=== PATIENT | female | born 1940 | race Caucasian/White ===

== ENCOUNTER 2017-03-05 21:01 | Inpatient (IN) | payer MEDICARE, BC ==
[~2017-03-05] VITALS: Ht 152.4 cm; Wt 59.1 kg
[~2017-03-05 21:01] MED LIST: ALBUTEROL INH; ALBUTEROL SULFAT4 MG; ALBUTEROL SULFAT4 MG PO; ALDACTONE100 MG PO; ALLOPURINOL 10100 M1 PO; ATROVENT; AVELOX 400 MG400 MG PO; AYR SALINE NASA14 GM TOP; BACTRIM DS TAB1 EACH PO; BENADRYL25 MG; BENADRYL25 MG PO; CELEXA20 MG PO; CENTRUM SILVER1 EAC1; CENTRUM SILVER1 EAC4 PO; CIPROFLOXACIN500 M3 PO; CLEOCIN HCL300 MG PO; CLONAZEPAM 1 MG1 M1 PO; COLACE100 MG PO; COMBIVENT; COMBIVENT INH; DEEP SEA NASAL44 M1 NASAL; DIFLUCAN200 MG PO; DUONEB 2.5-0.5 M3 ML INH; ENOXAPARIN40 MG/0.1 SUBQ; FISH OIL 1,0001 EAC6; FISH OIL 1,2001 EAC4 PO; FLEXERIL PO; FLOVENT HFA 2220 MC1; FLOVENT HFA 2220 MCG INH; FOLIC ACID1 MG PO; GLIPIZIDE 5 MG PO; HYOSCYAMINE0.125 M1 PO; INVANZ 1GM/NS 101 GM IV; IRON325 PO; KLONOPIN; KLOR-CON 1010 MEQ PO; LASIX 80 MG TAB80 MG PO; LEVAQUIN 250 M250 MG PO; LEVAQUIN 500 M500 M1 PO; LEVEMIR SUBQ; LIDODERM 5%1 PATCH TOP; LIPITOR 20 MG T20 M1 PO; LOPRESSOR 12.12.5 MG PO; LOPRESSOR25; MACRODANTIN50 MG PO; MEROPENEM500 MG INJECTION; MIRALAX255 GM PO; MUCINEX TA600 MG/TA2 PO; MUCINEX600 MG; NORCO 7.5-3251 EACH PO; NOVOLOG100 UNIT/1 SUBQ; OXYCODONE HCL30 MG; OXYCODONE HCL5 M1 PO; PREDNISONE 10 M10 M1; PREDNISONE 20 M20 MG; PRILOSEC 20 MG20 MG PO; PROCRIT 1010000 U/M1 SUBQ; PROTONIX40 M1 PO; PULMICORT0.5 MG/2 M; RESTORIL15 MG; RESTORIL15 MG PO; SIMVASTATIN40 MG PO; SINGULAIR 10 MG10 M1 PO; SLOW-MAG64 MG PO; STOOL SOFTENER50 MG; SYMBICORT160 MCG/4.; TAMSULOSIN HCL0.4 MG PO; TRAMADOL 50 MG50 MG PO; TYLENOL325 MG PO; VITAMIN B-12500 MCG PO; VITAMIN D1000 UNI1; VITAMIN D1000 UNI1 PO; VITAMIN D3400 UNIT PO; XOPENEX0.63 MG/3 INH; ZOLOFT100 MG; [UNRECOGNIZED DRUG - OTHER] PO
[2017-03-05 21:02] VITALS: BP 149/80
[2017-03-05 21:32] LABS: ABSOLUTE BASOPHILS 0.1 thou/uL (0.0-0.2); ABSOLUTE EOSINOPHILS 0.5 thou/uL (0.0-0.7); ABSOLUTE LYMPHOCYTES 2.7 thou/uL (0.8-5.3); ABSOLUTE MONOCYTES 1.1 thou/uL (0.0-1.2); ABSOLUTE NEUTROPHILS 6.5 thou/uL (1.6-8.1); BASOPHILS 0.5 %; EOSINOPHILS 4.2 %; HEMATOCRIT 33.2 % (37.0-47.0); HEMOGLOBIN 10.5 gm/dL (12.0-15.0); MCH 31.1 pg (26.0-34.0); MCHC 31.6 g/dL (28.0-37.0); MCV 98.4 fL (80.0-100.0); MONOCYTES 10.2 %; MPV 8.1 fl. (7.2-11.1); NUCLEATED RBCS 0 /100WBC; PLATELET COUNT* 276 thou/uL (150-400); POLYS 60.1 %; RBC 3.37 mil/uL (4.20-5.00); RDW-CV 14.9 % (10.5-14.5); WBC 10.8 thou/uL (4.0-11.0)
[2017-03-05 21:39] LABS: ANION GAP 8 mmol/L (7-16); BUN 28 mg/dL (7-18); CALCIUM 9.8 mg/dL (8.5-10.1); CHLORIDE 101 mmol/L (98-107); CO2 30 mmol/L (21-32); CREATININE 1.8 mg/dL (0.6-1.3); GLUCOSE 138 mg/dL (70-99); POTASSIUM 4.1 mmol/L (3.5-5.1); PROTIME 10.2 Seconds (9.20-11.50); SODIUM 139 mmol/L (136-145)
[2017-03-05] MEDS ORDERED: FLOVENT (21:45)
[2017-03-05] MEDS ORDERED: FOLIC ACID (21:47)
[2017-03-05] MEDS ORDERED: MUCINEX600 MG (21:47)
[2017-03-05 21:49] LABS: ALBUMIN 3.3 g/dL (3.4-5.0); ALKALINE PHOSPHATASE 87 U/L (46-116); NT-PRO BRAIN NAT PEPTIDE 575 pg/mL (<300); SGOT 32 U/L (15-37); SGPT 31 U/L (30-65); TOTAL BILIRUBIN 0.3 mg/dL (<0.1-1.0); TOTAL PROTEIN 8.2 g/dL (6.4-8.2); TROPONIN-I LEVEL <0.06 ng/mL (<0.06)
[2017-03-05] MEDS ORDERED: OXYCODONE HCL 55 MG PO (21:49)
[2017-03-05] MEDS ORDERED: SLOW-MAG64 M1 (21:50)
[2017-03-05] MEDS ORDERED: PRILOSEC 20 MG20 MG (21:50)
[2017-03-05] MEDS ORDERED: STOOL SOFTENER1 EAC3 (21:51)
[2017-03-05 22:07] LABS: URINE BILIRUBIN NEGATIVE (Negative); URINE BLOOD TRACE (Negative); URINE CLARITY CLEAR; URINE COLOR STRAW; URINE GLUCOSE-RANDOM NEGATIVE (Negative); URINE KETONES NEGATIVE (Negative); URINE LEUKOCYTES-REFLEX 1+ (Negative); URINE NITRITE-REFLEX NEGATIVE (Negative); URINE PROTEIN NEGATIVE (Negative); URINE UROBILINOGEN 0.2 E.U./dl (0.2-1.0)
[2017-03-05 22:13] LABS: SQUAMOUS 0-3 Few /LPF (0-3); URINE RBC 3-10 Few /HPF (0-2); WBC CLUMPS Few (None Seen)
[2017-03-05 22:14] LABS: BACTERIA-REFLEX 1-9 Few /HPF (None Seen); CASTS None Seen /LPF (None Seen); MUCUS None Seen strn/LPF (None Seen)
[2017-03-05 22:15] LABS: AMORPHOUS PHOSPHATES Few /LPF (None Seen)
[2017-03-05 22:31] LABS: BE -3.8 mmol/L (-2 to +3); HCO3 24.8 mmol/L (22.0-26.0)
[2017-03-05 22:32] LABS: pH 7.218 (7.340-7.450)
[2017-03-05 22:33] LABS: PCO2 62.2 mmHg (35.0-45.0); PO2 128.2 mmHg (75.0-100.0)
[2017-03-06] VITALS (14 sets, daily range): BP systolic 99–122; BP diastolic 35–47
--- NOTE | 2017-03-06 03:25 | NUR ---
PT ADMITTED TO ROOM 8 AT 0200. PT ADMITTED FOR SPONTANEOUS PNEMOTHORAX, RESPIRATORY THERAPY. PT ACCOMPANIED BY DAUGHTER. PT HAS CHEST TUBE PLACED TO LEFT LATERAL CHEST. PT ON 100% NON REBREATHER, RESPIRATIONS EVEN AND NON LABORED. PT'S HEART RATE, BLOOD PRESSURE AND RESPIRATIONS WITHIN NORMAL LIMITS. PT GIVEN PRN MORPHINE FOR PAIN. CALL LIGHT IN REACH, PT USING APPROPRIATELY.
[2017-03-06 04:47] LABS: BE 1.3 mmol/L (-2 to +3); HCO3 29.4 mmol/L (22.0-26.0)
[2017-03-06 04:50] LABS: PCO2 68.1 mmHg (35.0-45.0); pH 7.253 (7.340-7.450)
[2017-03-06 04:51] LABS: PO2 201.1 mmHg (75.0-100.0)
[2017-03-06 05:17] LABS: HEMATOCRIT 26.9 % (37.0-47.0); HEMOGLOBIN 8.6 gm/dL (12.0-15.0); MCH 31.3 pg (26.0-34.0); MCHC 31.8 g/dL (28.0-37.0); MCV 98.3 fL (80.0-100.0); NUCLEATED RBCS 0 /100WBC; PLATELET COUNT* 230 thou/uL (150-400); RBC 2.74 mil/uL (4.20-5.00); WBC 6.7 thou/uL (4.0-11.0)
[2017-03-06 05:54] LABS: ALBUMIN 2.8 g/dL (3.4-5.0); CALCIUM 8.7 mg/dL (8.5-10.1); CREATININE 1.9 mg/dL (0.6-1.3); POTASSIUM 4.5 mmol/L (3.5-5.1); TOTAL BILIRUBIN 0.2 mg/dL (<0.1-1.0); TOTAL PROTEIN 6.5 g/dL (6.4-8.2)
--- NOTE | 2017-03-06 06:30 | NUR ---
SPOKE WITH DR ENRIQUEZ FOR PULMONARY CONSULT. RECIEVED ORDERS TO INITIATE BIPAP.
[2017-03-06 06:36] LABS: ABSOLUTE LYMPHOCYTES 0.5 thou/uL (0.8-5.3); ABSOLUTE NEUTROPHILS 6.2 thou/uL (1.6-8.1)
[2017-03-06 06:37] LABS: PLATELET ESTIMATE ADEQUATE
[2017-03-06 09:16] LABS: BE -1.5 mmol/L (-2 to +3); HCO3 26.4 mmol/L (22.0-26.0); PO2 73.8 mmHg (75.0-100.0)
[2017-03-06 09:23] LABS: PCO2 62.1 mmHg (35.0-45.0); pH 7.247 (7.340-7.450)
--- NOTE | 2017-03-06 09:36 | EKG ---
[place] [address] ELECTROCARDIOGRAM REPORT Name: MARNI QUIGLEY Room: [address] ADM IN .R.#: [id number] Admission: 03/06/17 Attend Phys: Baldev Chun MD Discharge: Date of : 44 Report #: [id number] THIS REPORT FOR: //name// [facility] ED Test Date: 2017-03-05 Test Time: 22:06:25 Pat Name: MARNI QUIGLEY Department: Room: [facility] Gender: F Foreign Policy Officer: AP : 1940 Requested By: Kiki Gaspar Order Number: [id number] MD: Shane Huizar Measurements Intervals Hartley Rate: 99 P: 81 GA: 157 QRS: 37 QRSD: 60 T: QT: 395 QTc: 507 Interpretive Statements Sinus rhythm Borderline repolarization abnormality Prolonged QT interval Compared to ECG 08/09/2014 17:53:17 Prolonged QT interval now present Electronically Signed On 03-06-2017 9:36:28 PRACTICE ADMINISTRATOR by Shane Huizar [email or web address] <ELECTRONICALLY SIGNED> By: Shane Huizar MD, [facility] 1136 05 05 Shane Huizar MD, [facility] /EPI
--- NOTE | 2017-03-06 09:40 | NUR ---
ASSUMED CARE OF PT AROUND 0800 THIS AM. REFER TO ASSESSMENT. PT VOICES NO CONCERNS THIS AM. CHEST TUBE NOTED AT -20 PRESSURE. INTERMITTENT BUBBLING NOTED WITH RESPIRATIONS. PT CONTINUES ON BIPAP AT 12/6. PT TOLERATING WELL. REMOVED BIPAP TO ADMINISTER MEDICATION AND PLACED PT ON 7L O2/NC. SATS NOTED TO DROP IN THE 70'S. ABG'S REDRAWN AT 0900 AND RESULTS REPORTED TO DR. PENA. NO OTHER CONCERNS AT THIS TIME. CLWR. WCTM.
--- NOTE | 2017-03-06 13:40 | NUR ---
ORDER TO PLACE PATEL FOR IMMOBILIZATION AND I&O MONITORING. MULTIPLE ATTEMPTS TO PLACE PATEL WITHOUT SUCCESS. PT ATTEMPTED TO VOID ON OWN WITHOUT SUCCESS USING BEDPAN. UROLOGY CONSULTED. CYSTOSCOPE REQUIRED PER UROLOGISTS AND UNAVAILABLE AT THIS TIME. WCTM.
--- NOTE | 2017-03-06 14:06 | NUR ---
CHART REVIEWED. SPOKE WITH PATIENT. PATIENT LIVES WITH DAUGHTER REMBERTO. DAUGHTER DOES ALL CHOUSEHOLD CHORES, CLEANING, AND DRIVING. PRIOR TO ADMISSION PATIENT INDEPENDENT WITH BATHING AND DRESSING. PATIENT USES HOME 02 AND A BIPAP SERVICED BY [facility]. INFORMED OF THE ROLE OF CM. CM WILL CONTINUE TO FOLLOW.
--- NOTE | 2017-03-06 16:32 | NUR ---
PT TRANSFERRED TO ICU ROOM 3 AROUND 1615. REPORT GIVEN FROM PREVIOUS NURSE. VSS AT TIME OF TRANSFER. REFER TO ASSESSMENT. ALL BELONGINGS TRANSFERRED WITH PT. NO OTHER CONCERNS AT THIS TIME. CLWR. WCTM.
--- NOTE | 2017-03-06 17:22 | NUR ---
PT TOLERATING BREAK FROM BIPAP AT THIS TIME. PLACED ON 6L O2/NC AND SATS REMAINING 97%. PT TOLERATING CLEAR LIQUID DIET. DAUGHTER AT BEDSIDE AT THIS TIME. NO BUBBLES NOTED IN CHEST TUBE. NO SIGNS OF LEAK AT THIS TIME. NO OTHER CONCERNS. VSS. CLWR. WCTM.
[2017-03-07] VITALS (7 sets, daily range): BP systolic 101–140; BP diastolic 38–53
[2017-03-07 04:02] LABS: HEMATOCRIT 23.6 % (37.0-47.0); HEMOGLOBIN 7.6 gm/dL (12.0-15.0); MCH 31.3 pg (26.0-34.0); MCHC 32.1 g/dL (28.0-37.0); MCV 97.4 fL (80.0-100.0); MPV 7.9 fl. (7.2-11.1); RBC 2.43 mil/uL (4.20-5.00); RDW-CV 14.8 % (10.5-14.5); WBC 5.6 thou/uL (4.0-11.0)
[2017-03-07 04:11] LABS: CREATININE 1.7 mg/dL (0.6-1.3); MAGNESIUM 1.8 mg/dL (1.8-2.4); POTASSIUM 4.4 mmol/L (3.5-5.1)
--- NOTE | 2017-03-07 07:07 | NUR ---
PATIENT IS PROGRESSING TOWARDS GOALS. PT CHEST TUBE IS IN PLACE, ON 5L NC, COLOR DRAINAGE STAYED THE SAME SANGUINEOUS. RR, WORK OF BREATHING, 02 ALL WNL. PT WAS NOT ABLE TO SLEEP D/T CONTINOUS PAIN IN CHEST TUBE AREA. PT CURRENTLY STABLE, CALL LIGHT WITHIN REACH. PT HAS NO CONCERNS AT THIS TIME.
[2017-03-07 08:41] LABS: BE -0.8 mmol/L (-2 to +3); HCO3 26.2 mmol/L (22.0-26.0); PO2 64.8 mmHg (75.0-100.0); pH 7.281 (7.340-7.450)
--- NOTE | 2017-03-07 09:37 | NUR ---
RECEIVED REPORT FROM NIGHT RN. ASSESSMENT CHARTED. AFEBRILE. TELE STATUS. STILL ON NC. CHEST TUBE STILL IN PLACE. WILL CONTINUE TO MONITOR.
--- NOTE | 2017-03-07 11:01 | CON ---
[address] [address] CONSULTATION Name: MARNI QUIGLEY Room: [address] IN .R.#: [id number] Admission: 03/06/17 Attend Phys: Baldev Chun MD Discharge: Date of : 44 Report #: [id number] THIS REPORT FOR: //name// CC: Baldev Staley REASON FOR CONSULTATION: Pneumothorax and chronic obstructive pulmonary disease with acute respiratory failure. HISTORY OF PRESENT ILLNESS: The patient is a 76-year-old female patient with history of COPD, prior history of smoking. Her last FEV1 was less than 50% predicted according to the records from our office. She is on 4-5 liters oxygen. She has history of sleep apnea, unable to tolerate CPAP. Her last hospitalization to this facility with acute respiratory failure was in July of this year. She presented to the emergency room with a chief complaint of sudden onset of shortness of breath, dyspnea and in the emergency room she was found to have left-sided pneumothorax. On first attempt of the chest tube, the chest tube did not go all the way in and she had to have another chest tube placed. $since then, there is improvement in the pneumothorax, although there is still some eminence of apical pneumothorax. The patient reported that she had been having baseline shortness of breath, although that changed over 24 hours prior to hospitalization. Also, she reports she has cough productive, although she could not tell me the color of the sputum. She thought she might have some fever, but no chills. When I saw her, she was on BiPAP. She had multiple ABGs for her Continuing to have hypercapnic respiratory failure, although she was tolerating her BiPAP well, putting around 500 tidal volume. Overall, looking comfortable, but she still feels some pain on the side of the chest tube and feeling short of breath. ____ was taken off the BiPAP to 7 liter oxygen, she dropped her O2 saturation to 70s. PAST MEDICAL HISTORY: Chronic respiratory failure on home oxygen, COPD, possible interstitial lung disease, chronic renal failure, obstructive sleep apnea, not tolerating CPAP, gastroesophageal reflux disease. SOCIAL HISTORY: Smoked for a long time, but she quit. Does not drink alcohol. Does not abuse drugs. ALLERGIES: IODINE, CEPHALOSPORINS, PENICILLIN AND LEVOFLOXACIN. HOME MEDICATIONS: She is on oxygen, DuoNeb, Combivent, Flovent, ____, Mucinex, fish oil, metoprolol, Lasix, oxycodone, simvastatin, temazepam, folic acid. REVIEW OF SYSTEMS: Twelve systems reviewed with the patient, negative other than [place] [address] CONSULTATION Name: MARNI QUIGLEY Room: [address] IN M.R.#: [id number] Admission: 03/06/17 Attend Phys: Baldev Chun MD Discharge: Date of : 44 Report #: [id number] PHYSICAL EXAMINATION: GENERAL: She is on BiPAP, overall looking comfortable. Awake, alert and answering questions appropriately. HEAD: Normocephalic, atraumatic. EYES: Pupils equal, reactive to light. ORAL CAVITY: Not examined. I did not take the BiPAP mask off. NECK: Supple. No palpable lymph node. No palpable thyroid. Trachea central. No increased jugular venous pressure. CHEST: Diminished air movement bilaterally, mostly on the left side; some tenderness where the chest tube is placed; prolonged expiratory phase; some occasional wheezes. HEART: S1, S2. No murmur, no gallop. ABDOMEN: Benign, soft, lax, nontender, positive bowel sounds. No masses felt. LOWER EXTREMITIES: No edema appreciated. No calf tenderness. MUSCULOSKELETAL: No deformities. No contracture. No joint abnormalities. NEUROLOGIC: She seems to be awake, alert and oriented. Moving 4 extremities spontaneously. PSYCHIATRIC: Mood and affect appropriate, slightly anxious. LYMPHATICS: No palpable lymph node. LABORATORY DATA: She had multiple chest x-rays during hospitalization. Initial chest x-ray showed significant left-sided pneumothorax, moderate in size and a followup chest x-ray showed apical pneumothorax. The last chest x-ray this morning showed improvement in the basal pneumothorax, but some apical pneumothorax. Her white blood count is 10.8, hemoglobin 10.5 and platelets of 276. ABGs: She had multiple ABGs during this stay. The last ABG, pH of 7.24/62/73, although when I saw her, she was putting really good volume at 500. INR of 1. Creatinine of 1.9. Potassium 4.5. BNP was elevated. IMPRESSION: 1. Dsujm-su-kmkzktn hypoxic respiratory failure. At baseline, she is on 5 liters oxygen. 2. Obstructive sleep apnea, tolerating continuous positive airway pressure. 3. Hypoxic and hypercapnic respiratory failure. 4. Left-sided pneumothorax spontaneous, status post chest tube placement. 5. Chronic obstructive pulmonary disease exacerbation. PLAN: At this point, I will keep the chest tube to ____ water suction. We will do a stat chest x-ray now for followup and we will do daily chest x-rays. I did see some minimal leak on the chest tube during my evaluation. She will be on steroids, I will start her on antibiotics and she will be scheduled nebulization treatment. It was noted the patient is DNR. [facility] [address] [place] [address] CONSULTATION Name: MARNI QUIGLEY Room: [address] ADM IN M.R.#: [id number] Admission: 03/06/17 Attend Phys: Baldev Chun MD Discharge: Date of : 44 Report #: [id number] Thank you for the consult. Discussed with RN. We will follow along with you. <ELECTRONICALLY SIGNED> By: Raza Pardo MD 03/07/17 1101 1034 Chloé Gonsales MD /nt
--- NOTE | 2017-03-07 14:46 | NUR ---
PT TRANSFERRED TO TELE UNIT WITH BELONGINGS AND NURSE TECH. REPORT GIVEN TO SHANE OCHOA AT 1430.
--- NOTE | 2017-03-07 15:12 | NUR ---
PT TRANSFERRED VIA BED WITH RN AT 1500 WITH BELONGINGS. REPORT GIVEN TO GABRIELA ELKINS.
--- NOTE | 2017-03-07 15:51 | NUR ---
PATIENT TRANSFERED TO ROOM 213. SERVICENOW ADMINISTRATOR READING SR. 5 L O2. RIGHT ARM IV SALINE LOCKED. RIGHT FOREARM IV SALINE LOCKED. PATIENT IS ALERT AND ORIENTED X 4. CALL LIGHT IS IN REACH. BED IN LOW AND LOCKED POSTION. PATIENT HAS NO QUESTIONS OR CONCERNS AT THIS TIME. WILL CONTINUE TO MONITOR THIS SHIFT.
--- NOTE | 2017-03-07 18:16 | NUR ---
I have reviewed the documentation by KERRY from 699 to 1815 and I concur with it.
--- NOTE | 2017-03-07 23:41 | NUR ---
ALERT AND ORIENTED X 4. CHEST TUBE IN PLACE. O2 SATS IN 90S ON 2 LITERS NC. COLOSTOMY WITH GREEN LIQIUD DRAINAGE. APPROXIMALETY 200 CC THUS FAR. EMPTIED TWICE. CONT. TO MONITOR. BOWEL SOUNDS ACTIVE. CONT. FULL LIQIUD DIET. DENIES ANY COMPLAINTS. NO SIGN OF DISTRESS. WILL PROCEED WITH CURRENT PLAN OF CARE AT THIS TIME.
[2017-03-08] VITALS: BP 116/45
[2017-03-08 04:00] VITALS: BP 100/45
[2017-03-08 04:51] LABS: BE 0.3 mmol/L (-2 to +3); HCO3 25.8 mmol/L (22.0-26.0); PCO2 46.4 mmHg (35.0-45.0); PO2 70.4 mmHg (75.0-100.0); pH 7.363 (7.340-7.450)
[2017-03-08 05:10] LABS: HEMATOCRIT 22.5 % (37.0-47.0); HEMOGLOBIN 7.3 gm/dL (12.0-15.0); MCH 31.4 pg (26.0-34.0); MCHC 32.6 g/dL (28.0-37.0); MCV 96.1 fL (80.0-100.0); MPV 7.9 fl. (7.2-11.1); RBC 2.34 mil/uL (4.20-5.00); RDW-CV 14.9 % (10.5-14.5)
[2017-03-08 05:25] LABS: CREATININE 1.3 mg/dL (0.6-1.3); MAGNESIUM 1.9 mg/dL (1.8-2.4); POTASSIUM 4.2 mmol/L (3.5-5.1)
--- NOTE | 2017-03-08 06:19 | NUR ---
PATIENT WITH 5 CC OF OUTPUT FROM CHEST TUBE. 20CC OUTPUT AT BEGINNING OF SHIFT.
[2017-03-08 09:45] VITALS: BP 120/50
--- NOTE | 2017-03-08 10:35 | NUR ---
VANCOMYCIN ORDERED FOR THE TREATMENT OF AEROCOCCUS UTI PER DR SNOW. PATIENT HAS NO HISTORY OF RENAL DYSFUNCTION AND CURRENT LABS INCLUDE WBC=8.0, CR=1.3, CRCL (ACTUAL BW)=35.4. PER PHARMACY PROTOCOL, PATIENT WILL RECEIVE A 1.25G VANCOMYCIN BOLUS, FOLLOWED BY 0.5G Q12H THEREAFTER. A TROUGH IS SCHEDULED FOR 03/10 AT 1030 AND PHARMACY WILL FOLLOW.
--- NOTE | 2017-03-08 15:51 | NUR ---
ASSESSMENT COMPLETED. REFER TO COMPUTER CHARTING. SUPERVISOR PUMPING STATION TRACING SR. PATIENT IS ALERT AND ORIENTED X 4. 5 L NC. BIPAP HS. PATEL IS PATENT. COLOSTOMY IS INTACT. IV RIGHT FOREARM SALINE LOCKED. PATIENT C/O PAIN AT CHEST TUBE INSERTION SITE. CALL LIGHT IN REACH. BED IN LOW AND LOCKED POSTION.
--- NOTE | 2017-03-08 15:51 | NUR ---
ASSUMED CARE OF PATIENT. AGREE WITH PREVIOUS NURSES CHARTING. VSS ON 5L O2. PATIENT HAS BEEN ORIENTED TO ROOM. CALL LIGHT IS WITHIN REACH. NURSING WILL CONTINUE TO MONITOR.
--- NOTE | 2017-03-08 15:56 | NUR ---
I have reviewed the documentation by KERRY from 0700 to 1556 and I concur with it.
[2017-03-08 16:00] VITALS: BP 103/31
--- NOTE | 2017-03-08 18:09 | NUR ---
ALERT AND ORIENTED X4. PAIN BEING MANAGED WITH PO PAIN MEDICATION. DENIES NAUSEA. IV IS PATENT AND SALINE LOCKED. CHEST TUBE IN PLACE. BIPAP AT BEDSIDE FOR GENETIC COUNSELOR. VSS ON ROOM AIR HOURLY ROUNDS HAVE BEEN MAINTAINED THROUGHOUT SHIFT. CALL LIGHT IS WITHIN REACH. NURSING WILL CONTINUE TO MONITOR.
[2017-03-09] VITALS (7 sets, daily range): BP systolic 108–126; BP diastolic 41–54
--- NOTE | 2017-03-09 06:01 | NUR ---
ALERT AND ORIENTED. CHEST TUBE REMAINS IN PLACE AND O2 SATS REMAIN IN 90'S WITH O2 AT 5L/NC. DRESSING REMAINS DRY AND INTACT OVER CHEST TUBE SITE. ON BIPAP DURING NIGHT. ABLE TO SLEEP FOR SEVERAL HOURS DURING THE NIGHT. USING IV AND PO PAIN MEDICATION TO HELP WITH CHEST TUBE SITE PAIN. CONTINUES ON IV ANTIBIODICS. PATEL CATH PATENT WITH CLEAR YELLOW URINE. CALL LIGHT WITHIN REACH.
--- NOTE | 2017-03-09 17:52 | NUR ---
PATIENT IS ALERT AND ORIENTED TODAY VERY PLEASANT. HAS HAD SOME PAIN THAT IS CONTROLLED WITH ORAL PAIN MEDICATIONS, PAIN IS FROM CHEST TUBE. VITAL SIGNS STABLE ON 5 LITERS OF OXYGEN. PATEL IS IN PLACE AND DRAINING WELL. CHEST TUBE IS IN PLACE AND WORKING, PATIENT HAS NOT COMPLAINED OF SHORTNESS OF AIR TODADY. CALL LIGHT IN REACH, WILL CONTINUE TO MONITOR.
[2017-03-10 03:40] VITALS: BP 116/52
--- NOTE | 2017-03-10 04:18 | NUR ---
PATIENT ALERT AND ORIENTED. SMALL AMOUNT OF BUBBLING NOTED IN CHEST TUBE CANNISTER AT BEGINNING OF SHIFT. AT APROXIMATELY 2320 FLUID IN CHEST TUBE CANNISTER HAD ALOT OF BUBBLING NOTED. PATIENT HAD NO C/O SOA, LUNG SOUNDS REMAIN DIMMINISHED. NO INCREASE IN PAIN NOTED. O 2 SAT REMAINS AT 95% WITH O2 AT 5L/NC. RESPIRATIONS REMAIN EVEN AND NONLABORED. DRESSING CHANGED OVER CHEST TUBE SITE. BUBBLING STOPPED FOR A WHILE AFTER CHANGING CHEST TUBE SITE DRESSING. ACID PURIFICATION EQUIPMENT OPERATOR AND DR NOTIFIED. NEW ORDER FOR CHEST XRAY ORDERED. BUBBLING STARTED BACK UP AGAIN IN CANNISTER. TUBING WAS SEALED TIGHTER AND BUBBLING STOPPED AGAIN. BUBBLING SEEMS TO BE POSITIONAL WITH CHANGE IN PATIENT POSITION AT TIMES. THERE ALSO WAS AN INCREASE IN SEROSANGUINEOUS DRAINAGE. ICU NURSE ALSO HERE TO CHECK TUBING AND PATIENT. NOTIFIED OF CHEST XRAY RESULTS, AND CHANGES WITH BUBBLING AND DRAINAGE. CHEST TUBE CANNISTER CURRENTLY IS NOT BUBBLING. USING IV AND PO PAIN MEDICATION TO HELP WITH PAIN. PATEL PATENT WITH CLEAR YELLOW URINE. WILL CONTINUE TO MONITOR . CALL LIGHT WITHIN REACH.
--- NOTE | 2017-03-10 07:07 | NUR ---
DR BALLARD SAID TO CALL PULMONARY IN AM REGARDING PATIENT'S CHEST TUBE. MESSAGE LEFT WITH PULMONARY ANSWERING SERVICE GEOFF AT 0700.
[2017-03-10 11:14] VITALS: BP 122/50
--- NOTE | 2017-03-10 13:46 | NUR ---
RE: PHARMACY VANCOMYCIN DOSING. SCR = 1.3, CRCL = 27.3, TMAX = 36.6C, WBC = 8.0. PT RECEIVING VANCOMYCIN 500 MG IV Q12H. PT HAD VANCOMYCIN TROUGH RESULT OF 16 WHICH WAS DRAWN APPROPRIATELY. WILL CONTINUE SAME DOSE. WILL FOLLOW. THANK YOU.
[2017-03-10 15:39] VITALS: BP 126/77
--- NOTE | 2017-03-10 17:44 | NUR ---
PATIENT IS ALERT AND ORIENTED TODAY VERY PLEASANT TODAY. FAMILY AT BEDSIDE TODAY. HAS COMPLAINED OF PAIN WITH ANY MOVEMENT FROM THE CHEST TUBE. SURGERY FIXED AIR LEAK IN TUBE AND HAS BEEN WORKING WELL SINCE THEN, DRAINING WELL. PATEL IN PLACE WORKS WELL. PATIENT HAD AN EPISODE OF SHORTNESS OF AIR TODAY AND REQUESTED A BREATHING TREATMENT WHICH SEEMED TO HELP. COUGH HAS BECOME PRODUCTIVE AT TIMES. VITAL SIGNS STABLE ON 4 LITERS OF OXYGEN THROUGH NASAL CANNULA. CALL LIGHT IN REACH, WILL CONTINUE TO MONITOR.
[2017-03-10 22:15] VITALS: BP 133/59
[2017-03-11 00:21] VITALS: BP 133/54
[2017-03-11 04:04] LABS: HEMATOCRIT 27.6 % (37.0-47.0); HEMOGLOBIN 8.8 gm/dL (12.0-15.0); MCH 31.2 pg (26.0-34.0); MCV 97.5 fL (80.0-100.0); MPV 8.3 fl. (7.2-11.1); RBC 2.83 mil/uL (4.20-5.00); RDW-CV 15.1 % (10.5-14.5); WBC 10.3 thou/uL (4.0-11.0)
[2017-03-11 04:19] LABS: CALCIUM 8.6 mg/dL (8.5-10.1); CREATININE 1.4 mg/dL (0.6-1.3); MAGNESIUM 1.4 mg/dL (1.8-2.4); POTASSIUM 5.3 mmol/L (3.5-5.1)
[2017-03-11 04:43] VITALS: BP 124/62
--- NOTE | 2017-03-11 07:30 | NUR ---
ALERT AND ORIENTED. PATIENT TOOK PO PAIN MEDICATION X2 LAST NIGHT AND WAS ABLE TO REST QUIETLY IN BED. CHEST TUBE DRESSING REMAINS DRY AND INTACT WITH NO DRAINAGE OR BUBBLING NOTED IN CANNISTER. NO INCREASE IN SOA. LUNG SOUNDS REMAIN DIMISHED. REMAINS ON 4L/NC OF O2. CALL LIGHT WITHIN REACH. BED ALARM ON.
[2017-03-11 16:00] VITALS: BP 142/62
--- NOTE | 2017-03-11 18:08 | NUR ---
ALERT AND ORIENTED X4. PAIN BEING MANAGED WITH PO PAIN MEDICATION. DENIES NAUSEA. IV STARTED LEAKING IN LEFT FOREARM AND REINSERTED IN THE LEFT HAND, NOW SALINE LOCKED. CHEST TUBE IS IN PLACE. THIS AM THERE WAS SOME BUBBLING IN THE AIR LEAK CHAMBER PROVIDER NOTIFIED AND LEAK RESOLVED WITH POSITION CHANGES. VSS ON 4L O2. HOURLY ROUNDS HAVE BEEN MAINTAINED THROUGHOUT SHIFT. CALL LIGHT IS WITHIN REACH. NURSING WILL CONTINUE TO MONITOR.
[2017-03-11 20:00] VITALS: BP 143/59
[2017-03-12 00:35] VITALS: BP 133/54
--- NOTE | 2017-03-12 05:39 | NUR ---
ASSUMED CARE OF PATIENT AT APPROXIMATELY 1999. DURING INITIAL ASSESSMENT, PATIENT HAD NO C/O PAIN D/T CT. CT FUNCTIONED WELL DURING ENTIRE OVERNIGHT SHIFT, WITH NO BUBBLING. PARAMJITIENT CONTINUES TO BE ON 4L O2 AND IS SATTING WNL. PATEL CATHETER IN PLACE AT THIS TIME WITH YELLOW, CLEAR URINE OUTPUT. PATIENT DOES ALL COLOSTOMY CARE BY SELF AND WITH LITTLE SUPPORT FROM NURSING STAFF. 10MG OXYCODONE GIVEN FOR CHEST PAIN PRIOR TO BED, BUT NO OTHER COMPLAINTS OF ANY KIND DURING THE REMAINDER OF THE SHIFT. NURSING TO FOLLOW-UP NECESSARY. FALL PRECAUTIONS IN PLACE, INCLUDING CALL LIGHT WITHIN REACH. WILL CONTINUE TO MONITOR CLOSELY.
[2017-03-12 08:00] VITALS: BP 129/55
--- NOTE | 2017-03-12 16:18 | NUR ---
CONSULTED FOR VASCULAR ACCESS FOR PT WHO HAS HAD MULTIPLE IV SITES THIS STAY AND IS GETTING VANC BID. AFTER EVALUATION AND DISCUSSION WITH PRIMARY RN AN PT MIDLINE WAS CHOSEN. PER PT REQUEST ATTEMPT TO PLACE MIDLINE IN LEFT BASILIC UNSUCESSFUL. RIGHT BASILIC EVALUATED WITH ULTRASOUND AND MARKED. POWER MIDLINE TRIMMED TO 9CM PLACED RIGHT UPPER ARM BASILIC PER HOSPITAL POLICY. PRIMARY RN NOTIFIED AND LINE RELEASED FOR USE.
--- NOTE | 2017-03-12 17:58 | NUR ---
NO BUBBLING OR TIDALING NOTED IN CHEST TUBE CHAMBER. CHEST UBE REMAINS TO SUCTION. PT DENIES SOA, RESPIRATIONS EVEN AND SLIGHTLY LABORED AT REST. LUNGS CLEAR THROUGHOUT. OCCASIONAL PRODUCTIVE COUGH. O2 SAT UPPER 90S 4L O2 NC. NO C/O. IV INFILTRATED AND MIDLINE INSERTED R UPPER ARM. PT ABLE TO MAKE NEEDS KNOWN, CALL LIGHT IN REACH
[2017-03-12 20:00] VITALS: BP 153/71
[2017-03-13 00:08] VITALS: BP 127/53
--- NOTE | 2017-03-13 04:38 | NUR ---
ASSUMED CARE OF PT AT 1900 PT ALERT AND ORIENTED X4 VS AND ASSESSMENT STABLE. CHEST TUBE TO THE L LATERAL THORACIC AREA REMAINS INTACT AND TO -20 CONTINUOUS SUCTION DRSG CDI. NO NOTE CREPETIS SURROUNDING THE CHEST TUBE INSERTION SITE OR CLAVICAL AND NECK AREA. PT WATER SEAL CHAMBER WITHOUT BUBBLING EXCPT A SMALL BUBBLE WHEN PT WAS ASKED TO COUGH. PT REMAINS ON 4L NC PER HOME DOSE. PT HAD PAIN MEDS BEFORE BED THEN SLEPT THROUGH THE NIGHT. WILL MONITOR
--- NOTE | 2017-03-13 06:14 | NUR ---
PTS CHEST TUBE PLACED TO WATER SEAL AT 6 AM PER ORDER PT O2 SAT 97 ON 4L NC PT DENIED ANY CHEST PAIN OR SOA. PLACED ON CONTIUOUS PULSE OX UNTIL REPEAT CXR AT 1000. PT HAD NO OUTPUT OVERNIGHT FROM THE CHEST TUBE. WILL MONITOR
[2017-03-13 07:47] VITALS: BP 108/44
--- NOTE | 2017-03-13 09:07 | NUR ---
ASSUMED CARE OF PATIENT AFTER REPORT THIS MORNING. PATIENT SLEEPING, BUT EASY TO WAKE, ORIENTED APPROPRIATELY. PHYSICAL ASSESSMENT COMPLETED AND CHARTED. NO COMPLAINTS OF PAIN. GIVEN SCHEDULED MEDICATIONS, SEE EMAR FOR DOCUMENTATION. BLOOD PRESSURE HYPOTENSIVE. OTHER VITAL SIGNS STABLE. OXYGEN SATURATION WITHIN NORMAL LIMITS ON 4 LPM PER NASAL CANULA. CHEST TUBE INTACT AND WATER SEALED. NO SIGN OF AIR LEAK AT THIS TIME. PATIENT IS TO TRANSFER AND AMBULATE WITH ASSISTANCE FROM STAFF. USES CALL LIGHT APPROPRIATELY. DENIES NEEDS AT THIS TIME. CALL LIGHT WITHIN REACH. NURSING WILL CONTINUE TO MONITOR.
--- NOTE | 2017-03-13 13:16 | NUR ---
Nutrition: Pt assessed for LOS. Wt: 130#, usual wt is 148#. Possible 20# wt loss in 2 years - Mild loss. Admitted with severe COPD, GERD. Albumin 2.8, prealb 15.9, BG 155, K+ 5.3. RX: prednisone, fish oil, MVI, folic, acid, vanc, B12. Regular diet, eating 80-100%. Consider Mild risk at this time. Pt is eating well. GOALS: no further wt loss, good po intake, good HBV protein intake at meals. Mild risk.
[2017-03-13 13:32] LABS: CALCIUM 8.7 mg/dL (8.5-10.1); CREATININE 1.1 mg/dL (0.6-1.3); MAGNESIUM 1.6 mg/dL (1.8-2.4); POTASSIUM 3.7 mmol/L (3.5-5.1)
[2017-03-13 15:00] VITALS: BP 143/59
--- NOTE | 2017-03-13 16:27 | NUR ---
MET WITH PT. SHE WANTED TO TALK ABOUT HER ADVANCE DIRECTIVE AND FILL OUT A NEW ONE. SHE TOLD STORY OF WHEN SHE HAD HER HERNIA SURGERIES A FEW YEARS AGO, THE HAD TO PUT HER ON A VENTILATOR RIGHT AFTER SURGERY THEY COULD GET HER TO WAKE UP. HE PROMISED THE FAMILY HE WOULD ONLY KEEP HER ON IT FOR ONE WEEK AND IF SHE WAS NOT COMING AROUND HE WOULD WITHDRAW CARE. SHE WANTED NEW ADVANCE DIRECTIVE TO SAY SHE WANTED LIFE SUPPORT FOR ONE WEEK ONLY IF NEEDED. SHE DID NOT PUT HER DAUGHTER HER DPOA BECAUSE SHE IS TOO KIND HEARTED AND PROBABLY WOULD NOT BE ABLE TO MAKE AN UNEMOTIONAL DECISION. COPY PLACED ON CHART. ORIGINAL AND 4 COPIES GIVEN TO PT. PUT IN WHITE BAG IN HER CLOSET. PT.IS A NO CODE IN COMPUTER. RN WILL CALL TO CHANGE.
--- NOTE | 2017-03-13 17:19 | NUR ---
PATIENT REMAINS ALERT AND ORIENTED APPROPRIATELY. DENIES PAIN. CHEST TUBE REMAINS IN PLACE WITHOUT AIR LEAK. UNABLE TO DRAW LABS FROM PATIENT'S PICC LINE. FLUSHES WELL BUT WITHOUT BLOOD RETURN. SAT IN CHAIR AT BEDSIDE WITH PHYSICAL THERAPY TODAY. NOW BACK IN BED. DENIES NEEDS AT THIS TIME. CALL LIGHT WITHIN REACH. NURSING WILL CONTINUE TO MONITOR.
[2017-03-13 20:00] VITALS: BP 138/64
[2017-03-13 23:21] VITALS: BP 117/50
[2017-03-14 04:45] VITALS: BP 119/50
[2017-03-14 05:50] LABS: HEMATOCRIT 26.3 % (37.0-47.0); HEMOGLOBIN 8.3 gm/dL (12.0-15.0); MCH 30.5 pg (26.0-34.0); MCHC 31.5 g/dL (28.0-37.0); MCV 96.9 fL (80.0-100.0); NUCLEATED RBCS 0 /100WBC; PLATELET COUNT* 261 thou/uL (150-400); RBC 2.72 mil/uL (4.20-5.00); RDW-CV 15.7 % (10.5-14.5)
[2017-03-14 06:19] LABS: ALBUMIN 2.1 g/dL (3.4-5.0); CALCIUM 8.2 mg/dL (8.5-10.1); MAGNESIUM 1.6 mg/dL (1.8-2.4); POTASSIUM 3.9 mmol/L (3.5-5.1); TOTAL BILIRUBIN 0.2 mg/dL (<0.1-1.0); TOTAL PROTEIN 4.7 g/dL (6.4-8.2)
[2017-03-14 06:25] LABS: ABSOLUTE EOSINOPHILS 0.2 thou/uL (0.0-0.7); ABSOLUTE LYMPHOCYTES 1.8 thou/uL (0.8-5.3); ABSOLUTE MONOCYTES 0.8 thou/uL (0.0-1.2); ABSOLUTE NEUTROPHILS 9.1 thou/uL (1.6-8.1); ANISOCYTOSIS 1+; OVALOCYTES 1+; PLATELET ESTIMATE ADEQUATE; POIKILOCYTOSIS 1+
--- NOTE | 2017-03-14 07:55 | NUR ---
Alert and oriented x 4. She did have some pinkness to her heels and they were elevated. She refused her lovenox becuase she said it was bothering abdomen and she's had several hernias. Rt PICC line was not having blood return but cathflo was injected and it was working well. This am it did have some trouble drawing back blood again. Vitals have been within normal limits. O2 at 4L n/c. Shehas slept intermittenly.
[2017-03-14 08:00] VITALS: BP 105/57
[2017-03-14 15:36] VITALS: BP 108/63
[2017-03-15 04:37] VITALS: BP 108/49
[2017-03-15 05:20] LABS: ABSOLUTE EOSINOPHILS 0.3 thou/uL (0.0-0.7); ABSOLUTE MONOCYTES 0.9 thou/uL (0.0-1.2); ABSOLUTE NEUTROPHILS 7.5 thou/uL (1.6-8.1); BASOPHILS 0.2 %; EOSINOPHILS 3.1 %; HEMATOCRIT 26.6 % (37.0-47.0); HEMOGLOBIN 8.6 gm/dL (12.0-15.0); LYMPHOCYTES 18.9 %; MCH 31.4 pg (26.0-34.0); MCHC 32.5 g/dL (28.0-37.0); MCV 96.6 fL (80.0-100.0); MONOCYTES 8.5 %; MPV 8.3 fl. (7.2-11.1); NUCLEATED RBCS 0 /100WBC; PLATELET COUNT* 270 thou/uL (150-400); POLYS 69.3 %; RBC 2.75 mil/uL (4.20-5.00); WBC 10.8 thou/uL (4.0-11.0)
[2017-03-15 05:32] LABS: PREALBUMIN 25.3 mg/dL (18.0-35.7)
[2017-03-15 05:41] LABS: CALCIUM 8.1 mg/dL (8.5-10.1); CREATININE 1.1 mg/dL (0.6-1.3); MAGNESIUM 1.6 mg/dL (1.8-2.4); POTASSIUM 3.7 mmol/L (3.5-5.1); TOTAL BILIRUBIN 0.2 mg/dL (<0.1-1.0); TOTAL PROTEIN 4.9 g/dL (6.4-8.2)
--- NOTE | 2017-03-15 08:53 | NUR ---
PATIENT IS ALERT AND ORIENTED X 4. VSS, ON 4L 02 VIA NASAL CANNULA. PAIN CONTROLLED WITH ORAL PAIN MEDICATION AND CHARTED. CHEST TUBE INTACT WITH DRESSING THAT IS C/D/I, AND CHEST TUBE UNCLAMPED THIS AM PER ORDERS. COLOSTOMY BAG INTACT WITH SMALL AMOUNT OF STOOL THAT IS SELF CARE BY PATIENT. PATEL TO DEPENDENT DRAINAGE WITH CLEAR/YELLOW URINE OUTPUT D/T RETENTION. PORTABLE CHEST X-RAY THIS AM. MIDLINE TO RIGHT UPPER ARM-SL. PATIENT INSTRUCTED TO USE CALL LIGHT WHEN NEEDING ASSISTANCE. HOURLY ROUNDS MADE. WILL CONTINUE WITH PLAN OF CARE AND NURSING TO MONITOR.
--- NOTE | 2017-03-15 10:06 | NUR ---
EMMA SPOKE TO DR HATCH WHO INFORMS THAT THE PATIENT IS IN NEED OF A [id number] TRANSFER TO SEE A CARDIO-THORASIC SURGEON FOR A COMPLICATED CHEST TUBE. EMMA SPOKE TO THE PATIENT AND HER DAUGHTER TO INFORM OF THIS AND THE [facility] THE [facility] BE MADE TO [place]. EMMA SPOKE TO DR CORONEL TO INFORM OF THIS AND HE IS IN AGREEMENT. EMMA CONTACTED THE [facility] TRANSFER TEAM AND SPOKE TO TETE TO INFORM OF THE NEED AND REASON FOR TRANSFER, AND TO CONTACT DR CORONEL FOR THE DR-TO-DR. CM AWAITING REURN CALL FROM [facility] TRANSFER TEAM FOR DECISION. CM WILL REMAIN AVAILABLE TO ASSIST AND FOLLOW NEEDED.
--- NOTE | 2017-03-15 11:36 | NUR ---
VANCOMYCIN PHARMACY TO MANAGE: PATIENT IS BEING TREATED FOR PNEUMONITIS/UTI. WBC=10.8, SCR=1.1, CRCL=32.2, TEMP=36.5. PATIENT HAS BEEN RECEIVING A MAINTENANCE DOSE OF VANCOMYCIN 500 MG IV Q12H WITH A TROUGH GOAL OF 15-20 MCG/ML. A TROUGH WAS DRAWN TODAY A LITTLE LATE WITH A RESULT OF 19 MCG/ML. EVEN THOUGH A LITTLE LATE IT MOST LIKELY WOULD STILL BE WITHIN GOAL. PLAN IS TO CONTINUE WITH CURRENT MAINETNANCE DOSE OF VANCOMYCIN 500 MG IV Q12H. PHARMACY WILL CONTINUE TO FOLLOW AND MONITOR.
--- NOTE | 2017-03-15 15:13 | NUR ---
PATIENT LEFT UNIT BY BED WITH FIREMEN AT 1500. ALL BELONGINGS LEFT WITH PATIENT. EDUCATED PATIENT ON DISCHARGE INSTRUCTIONS. PATIENT VERBALIZED UNDERSTANDING.
== END 2017-03-15 15:14 | disposition short-term general hospital (02) | DRG 199 ==
LOC: M.ERS 21:01 → M.TBA-ER 03-06 00:46 → M.ICU 03-06 00:46 → M.2W 03-07 15:11 → M.ORTHSURG 03-08 15:26
PROVIDERS: Emergency Medicine; Internal Medicine; Internal Medicine Critical Care Medicine; Internal Medicine Pulmonary Disease; ADMIT Internal Medicine
DX: J93.83 Other pneumothorax (principal); J18.9 Pneumonia, unspecified organism; J96.21 Acute and chronic respiratory failure with hypoxia; J96.22 Acute and chronic respiratory failure with hypercapnia; E44.0 Moderate protein-calorie malnutrition; I50.32 Chronic diastolic (congestive) heart failure; I13.0 Hypertensive heart and chronic kidney disease with heart failure and stage 1 through stage 4 chronic kidney disease, or unspecified chronic kidney disease; J44.1 Chronic obstructive pulmonary disease with (acute) exacerbation; J98.11 Atelectasis; J44.0 Chronic obstructive pulmonary disease with (acute) lower respiratory infection; R04.2 Hemoptysis; Z66 Do not resuscitate; N18.3 Chronic kidney disease, stage 3 (moderate); N95.2 Postmenopausal atrophic vaginitis; R33.9 Retention of urine, unspecified; E78.5 Hyperlipidemia, unspecified; K59.09 Other constipation; M19.90 Unspecified osteoarthritis, unspecified site; G47.33 Obstructive sleep apnea (adult) (pediatric); K21.9 Gastro-esophageal reflux disease without esophagitis; Z68.25 Body mass index [BMI] 25.0-25.9, adult; Z90.710 Acquired absence of both cervix and uterus; Z93.3 Colostomy status; Z90.49 Acquired absence of other specified parts of digestive tract; Z88.0 Allergy status to penicillin; Z88.8 Allergy status to other drugs, medicaments and biological substances; Z88.1 Allergy status to other antibiotic agents; Z91.041 Radiographic dye allergy status; Z87.891 Personal history of nicotine dependence; T85.9XXA Unspecified complication of internal prosthetic device, implant and graft, initial encounter